=== PATIENT | male | born 1965 | race Caucasian/White ===

== ENCOUNTER 2022-03-22 02:09 | Emergency (ER) | payer BC ==
[2022-03-22] MEDS ORDERED: Lidocaine 2% with EPINEPHrine 1:200,000 20 ML SDV INJECT ONE (02:30)
[2022-03-22] MEDS ORDERED: Lidocaine 1% with EPINEPHrine 1:100,000 10 ML MDV INJECT ONE (02:38)
[2022-03-22] MEDS ORDERED: Lidocaine 2% with EPINEPHrine 1:200,000 20 ML SDV ONE (02:38)
[2022-03-22] MEDS ORDERED: Bacitracin/Neomycin/Polymyxin B Oint 0.9 GM U/D Packet TOP ONE (03:22)
[2022-03-22] MEDS ORDERED: Cephalexin 250 MG Cap PO ONE (03:24)
== END 2022-03-22 03:40 | disposition home or self-care (01) ==
LOC: KA.ED 02:09
DX: S01.81XA Laceration without foreign body of other part of head, initial encounter (principal); Z88.0 Allergy status to penicillin; W01.10XA Fall on same level from slipping, tripping and stumbling with subsequent striking against unspecified object, initial encounter
CPT/HCPCS: 12011; 12013; 99282-25; 99283; A9270-GY